=== PATIENT | female | born 1995 | race Caucasian/White ===

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

== ENCOUNTER → 2017-03-01 | Outpatient (CLI) | payer BC, OTHER ==
--- NOTE | ~2017-03-01 | CR63 ---
[facility]. [facility] A Service of [facility] RADIOLOGY TEXT RESULTS PATIENT: JASON SHELL LOCATION: [facility] : [birth year] UNIT #: [id number] AGE: [address]: Gene Edmond MD SEX: F ORDER DR: [id number] [address] [address] [id number] O MR#: [id number] Acc #: [id number] NAME: JASON SHELL : 1995 SEX: F STUDY DATE/TIME: 03/01/2017 16:56 UNIT: SRAD ROOM: STUDY DESCRIPTION: CR Chest 2 View Attending Physician: Gene Edmond M.D. Ordering Physician: Gene Edmond M.D. Primary Care Physician: Gene Edmond M.D. MEDICAL IMAGING REPORT This report is preliminary unless electronic signature is present. EXAM Chest PA and lateral 03/01/2017 HISTORY Acute bronchitis for 2 weeks, cough and chest congestion. FINDINGS PA and lateral examination of the chest upright shows a good expansion of the parenchyma with a normal distribution of the pulmonary vascularity. There is no indication of congestion, effusion, infiltrate, tumor, or nodular density. The pleural reflections and diaphragmatic contours are normal. The cardiac silhouette and mediastinal anatomy is within normal limits. IMPRESSION Normal chest. Dictated by... Gibran Dc M.D. THIS IS AN ELECTRONICALLY VERIFIED REPORT Gibran Dc M.D. at 03/02/2017 7:25 AM BAKARI/thomas TD: 03/02/2017 06:28 JOB #: [id number] MEDICAL IMAGING REPORT Page 1 of 1
== END | disposition home or self-care (01) ==
LOC: SRAD 16:51
DX: J20.9 Acute bronchitis, unspecified (principal)
CPT/HCPCS: 71020